=== PATIENT | female | born 1955 | race Caucasian/White ===

== ENCOUNTER → 2022-12-10 | Outpatient (CLI) | payer MEDICARE, OTHER | END | disposition home or self-care (01) | LOC: RADPV 13:23 | PROVIDERS: ATTEND Student in an Organized Health Care Education/Training Program | DX: M85.88 Other specified disorders of bone density and structure, other site (principal); Z87.310 Personal history of (healed) osteoporosis fracture | CPT/HCPCS: 77080 ==